=== PATIENT | female | born 1985 | race African-American/Black ===

== ENCOUNTER 2024-03-18 15:44 | Emergency (ER) | payer BC, MEDICAID ==
[~2024-03-18] VITALS: Ht 157.5 cm; Wt 60.1 kg
[2024-03-18 15:55] VITALS: BP 108/67; PULSE 89; RESP 16; O2SAT 100
[2024-03-18] MEDS ORDERED: ACETAMINOPHEN 500 MG TAB or CAP PO ONE (16:30)
--- NOTE | 2024-03-18 16:32 | ED.PDOC ---
BIOFUELS TECHNOLOGY MANAGER HPI Comments 38-year-old female , with past medical history pertinent for asthma, pr esents to ED for abdominal pain x1 day, associated with dysuria. Patient states that the abdominal pain is in her upper abdomen and radiates to her back. Patient states that the pain is intermittent and is sharp. She currently rates the pain as 9/10 in severity. She denies any nausea, vomiting, cough, fever, shortness of breath, vaginal bleeding. Patient states that she is unsure how many weeks she is . Her last menstrual period was November 14. She states that she has seen her PCP who confirmed her . Patient states that she has a follow up with OBGYN on March 26. Chief Complaint: Abdominal Pain Time Seen by MD: 15:50 Reviewed Notes: Nurses Notes, Medications, Allergies Allergies: Coded Allergies: NO KNOWN ALLERGIES (Unverified , 03/18/24) Past Medical History PAST MEDICAL HISTORY: Asthma Surgical History: Denies all surgeries FIELD CARE ADVOCATE History: No Pertinent FIELD CARE ADVOCATE History Family History Family History: Reviewed,noncontributory to illness Social History Smoker: Non-Smoker Alcohol: Denies ETOH Use Drugs: Denies Drug Use Constitutional: denies: chills, diaphoresis, fatigue, fever, malaise, sweats, weakness, others EENTM: denies: blurred vision, double vision, ear bleeding, ear discharge, ear drainage, ear pain, ear ringing, eye pain, eye redness, hearing loss, mouth pain, mouth swelling, nasal discharge, nose bleeding, nose congestion, nose pain, photophobia, tearing, throat pain, throat swelling, voice changes, others Respiratory: denies: cough, hemoptysis, orthopnea, SOB at rest, shortness of breath, SOB with excertion, stridor, wheezing, others Cardiovascular: denies: chest pain, dizzy spells, diaphoresis, Dyspnea on exertion, edema, irregular heart beat, left arm pain, lightheadedness, palpitations, PND, syncope, others Gastrointestinal: reports: abdominal pain; denies: abdomen distended, blood streaked bowels, constipated, diarrhea, dysphagia, difficulty swallowing, hematemesis, melena, nausea, poor appetite, poor fluid intake, rectal bleeding, rectal pain, vomiting, others Genitourinary: reports: dysuria, ; denies: abnormal vagina bleeding, burning, dyspareunia, flank pain, frequency, hematuria, incontinence, pain, vagina discharge, urgency, others Neurological: denies: dizziness, fainting, headache, left sided numbness, left sided weakness, numbness, paresthesia, pre-existing deficit, right sided numbness, right sided weakness, seizure, speech problems, tingling, tremors, weakness, others Musculoskeletal: denies: back pain, gout, joint pain, joint swelling, muscle pain, muscle stiffness, neck pain, others Integumetry: denies: bruises, change in color, change in hair/nails, dryness, laceration, lesions, lumps, rash, wounds, others Allergic/Immunocompromised: denies: Difficulty Healing, Frequent Infections, Hives, Itching, others Hematologic/Lymphatic: denies: anemia, blood clots, easy bleeding, easy bruising, swollen glands, others Endocrine: denies: excessive hunger, excessive sweating, excessive thirst, excessive urination, flushing, intolerance to cold, intolerance to heat, unexplained weight gain, unexplained weight loss, others Psychiatric: denies: anxiety, bipolar disorder, depression, hopeless, panic disorder, schizophrenia, sleepless, suicidal, others All Other Systems: Reviewed and Negative Physical Exam General Appearance: No Apparent Distress, Normal HEENT: Normal ENT Inspection, Pharynx Normal, TMs Normal Neck: Full Range of Motion, Non-Tender, Normal, Normal Inspection Respiratory: Chest Non-Tender, Lungs Clear, No Accessory Muscle Use, No Respiratory Distress, Normal Breath Sounds Cardiovascular: No Edema, No JVD, No Murmur, No Gallop, Normal Peripheral Pulses, Regular Rate/Rhythm Breast Exam: Deferred Gastrointestinal: No Organomegaly, No Pulsatile Mass, Normal Bowel Sounds, Soft, Tenderness (Tenderness to palpation to the epigastric region and the left upper quadrant.) Genitalia: Deferred Pelvic: Deferred Rectal: Deferred Extremities: No calf tenderness, Normal capillary refill, Normal inspection, Normal range of motion, Non-tender, No pedal edema Musculoskeletal : Apperance: Normal Neurologic: Alert, air vice marshal II-XII nml as Tested, No Motor Deficits, Normal Affect, Normal Mood, No Sensory Deficits Cerebellar Function: Normal Reflexes: Normal Skin: Dry, Normal Color, Warm Lymphatic: No Adenopathy Was a procedure done? Was a procedure done?: No Differential Diagnosis (FIELD CARE ADVOCATE) Vaginal Bleeding: - Complete, - Incomplete, - Inevitable, - Missed, - Threatened, Ectopic , UTI X-Ray, Labs, Meds, VS Vital Signs Date Time Temp Pulse Resp B/P (MAP) Pulse Ox O2 Delivery O2 Flow Rate FiO2 03/18/24 15:55 97.7 89 16 108/67 (81) 100 Lab Test 03/18/24 19:30 03/18/24 16:41 Range/Units Urine Color Light-yellow Yellow Urine Clarity Clear Clear Urine pH 6.0 5.0-9.0 Urine Specific [place] 1.020 1.001-1.035 Urine Protein Negative Negative Urine Ketones Negative Negative Urine Blood Negative Negative /uL Urine Nitrite Negative Negative Urine Bilirubin Negative Negative Urine Urobilinogen Normal Negative mg/dL Urine Leukocyte Esterase Negative Negative /uL Urine RBC 1 0 - 4 /hpf Urine WBC 1 0 - 5 /hpf Urine Squamous Epithelial Cells Few <5 /hpf Urine Bacteria None seen None Seen /hpf Urine Glucose Normal Normal mg/dL White Blood Count 9.3 4.4-10.8 10^3/uL Red Blood Count 3.93 L 4.0-5.20 10^6/uL Hemoglobin 10.8 L 12.2-16.2 g/dL Hematocrit 32.7 L 36.0-46.0 % Mean Corpuscular Volume 83.3 80.0-100.0 fL Mean Corpuscular Hemoglobin 27.4 L 28.0-32.0 pg Mean Corpuscular Hemoglobin Concent 32.9 32.0-36.0 g/dL Red Cell Distribution Width 14.2 11.8-14.3 % Platelet Count 164 140-450 10^3/uL Mean Platelet Volume 8.7 6.9-10.8 fL Neutrophils (%) (Auto) 76.9 37.0-80.0 % Lymphocytes (%) (Auto) 14.8 10.0-50.0 % Monocytes (%) (Auto) 6.9 0.0-12.0 % Eosinophils (%) (Auto) 1.3 0.0-7.0 % Basophils (%) (Auto) 0.1 0.0-2.0 % Neutrophils # (Auto) 7.1 1.6-8.6 10 ^3/uL Lymphocytes # (Auto) 1.4 0.4-5.4 10 ^3/uL Monocytes # (Auto) 0.6 0-1.3 10 ^3/uL Eosinophils # (Auto) 0.1 0-0.8 10 ^3/uL Basophils # (Auto) 0 0-0.2 10 ^3/uL Nucleated Red Blood Cells 0.0 % Sodium Level 138 136-145 mmol/L Potassium Level 3.8 3.5-5.1 mmol/L Chloride Level 106 98-107 mmol/L Carbon Dioxide Level 23 20-31 mmol/L Anion Gap 9 5-15 Blood Urea Nitrogen 11 9-23 mg/dL Creatinine 0.60 0.550-1.02 mg/dL Glomerular Filtration Rate Calc 118 >90 mL/min BUN/Creatinine Ratio 18.3 10.0-20.0 Serum Glucose 77 74-106 mg/dL Calcium Level 9.3 8.7-10.4 mg/dL Total Bilirubin 0.3 0.2-1.0 mg/dL Aspartate Amino Transferase (AST) 10 L 13-40 U/L Alanine Aminotransferase (ALT) < 9 7-40 U/L Alkaline Phosphatase 46 46-116 U/L Total Protein 6.1 5.7-8.2 g/dL Albumin 3.9 3.2-4.8 g/dL Lipase 27 12-53 U/L Beta HCG, Quantitative 91235.9 H 1.5-4.2 mIU/mL X-Ray, Labs, Meds, VS Comment OB US FINDINGS: Single intrauterine gestation. Breech presentation. heart rate 148 beats per minute. Average ultrasound age 21 weeks 4 days. Estimated due date 07/25/2024. Placenta is posterior. The cervix is not clearly visualized. No definite evidence to suggest abruption or previa at this time. measurements (cm): BPD 5.3, HC 19.7, AC 16.9, FL 3.4. Estimated weight: 421g Amniotic fluid is subjectively adequate. IMPRESSION: Single living intrauterine gestation as above. MDM: Patient with history as above presented with abdominal pain. History obtained from patient. Patient was nontoxic, stable, afebrile, ambulatory, no acute distress. Exam as above. Labs reviewed. CBC showed mild anemia with hemoglobin at 10.8 and hematocrit at 32.7. CMP did not show any significant abnormalities. Lipase within normal limits. LFTs within normal limits. Therefore acute infection. Beta hCG was 39335.9. Independently reviewed imaging. Ob ultrasound showed a single live intrauterine , with no acute abnormalities. Reviewed external records. All findings were discussed with the patient. Differential diagnosis considered. Overall presentation is consistent with normal . Low suspicion for present jaw abruption, spontaneous , UTI. Ordered Tylenol for the patient in the ED. Patient was reevaluated and vital signs were reviewed. Consideration was given for admission, but the patient was stable for outpatient management. Disposition: Discussed the need to follow up diagnostics, including incidental findings. Discharged the patient with instructions to obtain outpatient follow up in 1-2 days of today's symptoms and findings, with strict return precautions if patient develops new or worsening symptoms. This medical document was created using the [employer] dictation system. Although this document has been carefully reviewed, there may still be some phonetic and typographical errors, which are due to imperfections of the software program, and do not reflect any compromise in the patient's medical care. Time of 1ST Reevaluation: 20:27 Reevaluation 1ST: Improved Patient Education/Counseling: Diagnosis, Treatment, Prognosis, Need For Follow Up Family Education/Counseling: No Family Present Departure 1 Departure Time of Disposition: 20:28 Impression: Primary Impression: Abdominal pain in Qualified Codes: O26.892 - Other specified related conditions, s econd trimester; R10.9 - Unspecified abdominal pain Disposition: 01 HOME / SELF CARE / HOMELESS Condition: Fair Critical Care Note Critical Care Time?: No Stability Stability form required: No Heart Score Heart Score: Heart Score Response (Comments) Value History N/A 0 EKG N/A 0 Age N/A 0 Risk Factors N/A 0 Troponin N/A 0 Total 0 DEJA GALLEGOS PAC Mar 18, 2024 16:32
[2024-03-18 17:02] LABS: Basophils # (auto) 0 10 ^3/uL (0-0.2); Basophils % (auto) 0.1 % (0.0-2.0); Eosinophils # (auto) 0.1 10 ^3/uL (0-0.8); Eosinophils % (auto) 1.3 % (0.0-7.0); Hematocrit 32.7 % (36.0-46.0); Hemoglobin 10.8 g/dL (12.2-16.2); Lymphocytes # (auto) 1.4 10 ^3/uL (0.4-5.4); Lymphocytes % (auto) 14.8 % (10.0-50.0); Mean Corpuscular Hemoglobin 27.4 pg (28.0-32.0); Mean Corpuscular Hgb Conc. 32.9 g/dL (32.0-36.0); Mean Corpuscular Volume 83.3 fL (80.0-100.0); Monocytes # (auto) 0.6 10 ^3/uL (0-1.3); Monocytes % (auto) 6.9 % (0.0-12.0); Neutrophils # (auto) 7.1 10 ^3/uL (1.6-8.6); Neutrophils % (auto) 76.9 % (37.0-80.0); Platelet Count (auto) 164 10^3/uL (140-450); Red Blood Cells 3.93 10^6/uL (4.0-5.20); Red Cell Distribution Width 14.2 % (11.8-14.3); White Blood Cell 9.3 10^3/uL (4.4-10.8)
[2024-03-18 17:17] LABS: Albumin 3.9 g/dL (3.2-4.8); Anion Gap 9 (5-15); BUN/Creatinine Ratio 18.3 (10.0-20.0); Blood Urea Nitrogen 11 mg/dL (9-23); Calcium 9.3 mg/dL (8.7-10.4); Carbon Dioxide 23 mmol/L (20-31); Chloride 106 mmol/L (98-107); Glucose 77 mg/dL (74-106); Potassium 3.8 mmol/L (3.5-5.1); Sodium 138 mmol/L (136-145)
[2024-03-18 17:18] LABS: Total Protein 6.1 g/dL (5.7-8.2)
[2024-03-18 17:21] LABS: Alanine Aminotransferase < 9 U/L (7-40); Alkaline Phosphatase 46 U/L (46-116); Aspartate Aminotransferase 10 U/L (13-40); Bilirubin, Total 0.3 mg/dL (0.2-1.0)
--- NOTE | 2024-03-18 19:02 | DVH ---
US OB LIMITED CLINICAL HISTORY: Abd pain in , 17 weeks , COMPARISON: At the time of this review, no prior studies are available for comparison. TECHNIQUE: Real-time grayscale, color flow and M-mode imaging of the gravid uterus is performed. FINDINGS: Single intrauterine gestation. Breech presentation. heart rate 148 beats per minute. Average ul trasound age 21 weeks 4 days. Estimated due date 07/25/2024. Placenta is posterior. The cervix is not clearly visualized. No definite evidence to suggest abrupti on or previa at this time. measurements (cm): BPD 5.3, HC 19.7, AC 16.9, FL 3.4. Estimated weight: 421g Amniotic fluid is subjectively adequate. IMPRESSION: Single living intrauterine gestation as above.
[2024-03-18 19:43] LABS: Urine Bacteria None Seen /hpf (None Seen)
[2024-03-18 19:48] LABS: Urine Blood Negative /uL (Negative); Urine Clarity Clear (Clear); Urine Color Light-Yellow (Yellow); Urine Protein, UAD Negative (Negative); Urine Urobilinogen Normal (Negative); Urine WBC 1 /hpf (0 - 5)
== END 2024-03-19 00:13 | disposition left against medical advice (07) ==
LOC: ER 15:44
DX: O26.892 Other specified pregnancy related conditions, second trimester (principal); R10.12 Left upper quadrant pain; J45.909 Unspecified asthma, uncomplicated; Z3A.21 21 weeks gestation of pregnancy
CPT/HCPCS: 36415; 76805; 80053; 81001; 83690; 84702; 85025

== ENCOUNTER → 2024-04-02 | Outpatient (CLI) | payer BC, MEDICAID ==
[2024-04-02 12:29] LABS: Basophils # (auto) 0 10 ^3/uL (0-0.2); Basophils % (auto) 0.3 % (0.0-2.0); Eosinophils # (auto) 0.1 10 ^3/uL (0-0.8); Eosinophils % (auto) 1.7 % (0.0-7.0); Hematocrit 34.3 % (36.0-46.0); Hemoglobin 11.3 g/dL (12.2-16.2); Lymphocytes # (auto) 0.8 10 ^3/uL (0.4-5.4); Lymphocytes % (auto) 10.6 % (10.0-50.0); Mean Corpuscular Hemoglobin 27.3 pg (28.0-32.0); Mean Corpuscular Volume 82.7 fL (80.0-100.0); Monocytes # (auto) 0.6 10 ^3/uL (0-1.3); Monocytes % (auto) 7.6 % (0.0-12.0); Neutrophils # (auto) 6.3 10 ^3/uL (1.6-8.6); Neutrophils % (auto) 79.8 % (37.0-80.0); Nucleated Red Blood Cells % 0.1 %; Platelet Count (auto) 154 10^3/uL (140-450); Red Blood Cells 4.14 10^6/uL (4.0-5.20); Red Cell Distribution Width 14.3 % (11.8-14.3); White Blood Cell 7.9 10^3/uL (4.4-10.8)
[2024-04-02 12:56] LABS: Albumin 3.9 g/dL (3.2-4.8); Alkaline Phosphatase 58 U/L (46-116); Anion Gap 6 (5-15); BUN/Creatinine Ratio 12.3 (10.0-20.0); Bilirubin, Total 0.3 mg/dL (0.2-1.0); Blood Urea Nitrogen 9 mg/dL (9-23); Calcium 9.4 mg/dL (8.7-10.4); Carbon Dioxide 26 mmol/L (20-31); Chloride 105 mmol/L (98-107); Potassium 3.7 mmol/L (3.5-5.1); Sodium 137 mmol/L (136-145); Triglycerides 89 mg/dL (< 150)
[2024-04-02 12:57] LABS: Total Protein 6.6 g/dL (5.7-8.2)
[2024-04-02 12:59] LABS: Alanine Aminotransferase < 9 U/L (7-40); Aspartate Aminotransferase 10 U/L (13-40); Glucose 64 mg/dL (74-106)
[2024-04-02 13:00] LABS: Cholesterol 204 mg/dL (< 200); HDL Cholesterol 87 mg/dL (40-59); LDL Cholesterol 101 mg/dL (< 100); Thyroid Stimulating Hormone 0.2 uIU/mL (0.55-4.78)
[2024-04-02 13:04] LABS: Creatinine, Urine 125.02 mg/dL (30.0-125.0); Opiate Scree,Urine Neg (NEGATIVE)
[2024-04-02 13:18] LABS: Beta HCG, Quantitative 14764.5 mIU/mL (1.5-4.2)
[2024-04-02 13:23] LABS: Amphetamine Screen, Urine Neg (NEGATIVE); Barbiturate Scree,Urine Neg (NEGATIVE); Benzodiazephine Screen, Urine Neg (NEGATIVE); Cannabinoid Screen, Urine Neg (NEGATIVE); Cocaine Screen, Urine Neg (NEGATIVE); Phencyclidine Screen, Urine Neg (NEGATIVE)
[2024-04-03 08:06] LABS: RPR Non Reactive (Non Reactive); Rubella Antibodies, IgG 1.49 index (Immune >0.99); Varicella Zoster IgG Antibody Reactive (Non Reactive)
[2024-04-03 13:06] LABS: Chlamydia Trachomatis, NAA Negative (Negative); Neisseria gonorrhoeae, NAA Negative (Negative)
== END | disposition home or self-care (01) ==
LOC: LAB 11:46
PROVIDERS: ATTEND Obstetrics & Gynecology
DX: Z34.80 Encounter for supervision of other normal pregnancy, unspecified trimester (principal); Z36.0 Encounter for antenatal screening for chromosomal anomalies; N39.0 Urinary tract infection, site not specified
CPT/HCPCS: 36415; 80053; 80061; 80307; 82570; 83036; 84439; 84443; 84702; 85025; 86592; 86703; 86762; 86787; 86850; 86900; 86901; 87340; 87902

== ENCOUNTER → 2024-04-24 | Outpatient (CLI) | payer BC, MEDICAID ==
[2024-04-24 11:37] LABS: Basophils # (auto) 0 10 ^3/uL (0-0.2); Basophils % (auto) 0.1 % (0.0-2.0); Eosinophils # (auto) 0.1 10 ^3/uL (0-0.8); Eosinophils % (auto) 1.3 % (0.0-7.0); Hematocrit 31.1 % (36.0-46.0); Hemoglobin 10.3 g/dL (12.2-16.2); Lymphocytes # (auto) 1.1 10 ^3/uL (0.4-5.4); Lymphocytes % (auto) 13.5 % (10.0-50.0); Mean Corpuscular Hemoglobin 27.3 pg (28.0-32.0); Mean Corpuscular Hgb Conc. 33.2 g/dL (32.0-36.0); Mean Corpuscular Volume 82.4 fL (80.0-100.0); Monocytes # (auto) 0.5 10 ^3/uL (0-1.3); Monocytes % (auto) 6.1 % (0.0-12.0); Neutrophils # (auto) 6.5 10 ^3/uL (1.6-8.6); Platelet Count (auto) 158 10^3/uL (140-450); Red Blood Cells 3.77 10^6/uL (4.0-5.20); Red Cell Distribution Width 14.1 % (11.8-14.3); White Blood Cell 8.2 10^3/uL (4.4-10.8)
[2024-04-24 11:39] LABS: Albumin 3.7 g/dL (3.2-4.8); Alkaline Phosphatase 68 U/L (46-116); Anion Gap 7 (5-15); Aspartate Aminotransferase 13 U/L (13-40); BUN/Creatinine Ratio 13.4 (10.0-20.0); Calcium 9.3 mg/dL (8.7-10.4); Carbon Dioxide 25 mmol/L (20-31); Chloride 106 mmol/L (98-107); Glucose 83 mg/dL (74-106); Potassium 3.6 mmol/L (3.5-5.1); Sodium 138 mmol/L (136-145)
[2024-04-24 11:40] LABS: Total Protein 6.4 g/dL (5.7-8.2)
[2024-04-24 11:53] LABS: Alanine Aminotransferase < 9 U/L (7-40); Bilirubin, Total 0.3 mg/dL (0.2-1.0); Blood Urea Nitrogen 9 mg/dL (9-23)
[2024-04-25 07:06] LABS: RPR Non Reactive (Non Reactive)
[2024-04-25 11:06] LABS: Chlamydia Trachomatis, NAA Negative (Negative); Neisseria gonorrhoeae, NAA Negative (Negative)
== END | disposition home or self-care (01) ==
LOC: LAB 10:44
PROVIDERS: ATTEND Obstetrics & Gynecology
DX: Z34.80 Encounter for supervision of other normal pregnancy, unspecified trimester (principal)
CPT/HCPCS: 36415; 80053; 82951; 83036; 85025; 86592; 86850; 86900; 86901; 87086

== ENCOUNTER 2024-05-18 13:44 | Observation (INO) | payer BC, MEDICAID ==
--- NOTE | 2024-05-18 15:25 | DVH ---
EXAM: US OBSTERICAL LIMITED CLINICAL HISTORY: KAREN check COMPARISON: US OB ULTRASOUND COMP GTR 14 WKS on DOS: 03/18/24 TECHNIQUE: Grayscale, color-flow Doppler, and spectral Doppler ultrasound of the pelvis is performed by transabdominal technique. Findings/Impression: Single live intrauterine in vertex presentation with heart rate of 142 bpm. Cervical os appears closed . Placenta is posterior in location without evidence of previa or abrupti on. Limited evaluation of anatomy. Amniotic fluid is within normal limits with KAREN 13.2 cm and MVP 5.7 cm.
[2024-05-18] MEDS ORDERED: URSO300C2 PO (15:33)
[2024-05-18] MEDS ORDERED: PREN-96 PO (15:34)
--- NOTE | 2024-05-18 22:09 | DVHDS2 ---
Physician Discharge Progress N Final Diagnosis: 2vessel cord,choles Operations or Procedures: Operations or Procedures nst,sono Condition on Discharge: Good Disposition: Home Discharge Instructions: Diet: Regular Activity: No Restrictions, As Tolerated Medications: na Follow Up Care: Specialist: 3d Discharge Statement: "Patient was advised to return to the ER or call 911 if any headaches, dizziness, shortness of breath, chest pain, abdominal pain, bleeding, fevers, or worsening of medical condition. Patient was counseled about treatment plan, medications, possible side effects, patientverbalized understanding. All questions were answered to the best of my ability. This discharge took greater then 30 minutes in planning, reviewing documentation, counseling the patient, and discussing with other team members." FAVIO HOANG DO May 18, 2024 22:09
== END 2024-05-18 15:58 | disposition home or self-care (01) ==
LOC: LDRP 13:44 → UNDOADMOB 13:44 → LDRP 13:56
PROVIDERS: ADMIT Obstetrics & Gynecology; ATTEND Obstetrics & Gynecology
DX: O26.643 Intrahepatic cholestasis of pregnancy, third trimester (principal); K83.1 Obstruction of bile duct; Z3A.30 30 weeks gestation of pregnancy; Z79.899 Other long term (current) drug therapy; Z98.890 Other specified postprocedural states
CPT/HCPCS: 59025; 76815; 81002; 94760; G0378

== ENCOUNTER 2024-05-23 08:41 | Observation (INO) | payer BC, MEDICAID ==
[~2024-05-23] VITALS: Ht 157.5 cm; Wt 62.1 kg
[~2024-05-23 08:41] MED LIST: PREN-96 PO; URSO300C2 PO
--- NOTE | 2024-05-23 19:28 | DVHDS2 ---
Physician Discharge Progress N Final Diagnosis: testing for 2VC Secondary Diagnosis: ruled out for cholestasis Operations or Procedures: Operations or Procedures S: 38yo IUP@31wks here for NST for 2VC. Pt reports that Dr. Schaefer told her to take zyrtec for itching in her palms of hands and soles of feet. The itching is gone after taking Zyrtec. Next appt with Dr. Schaefer is on 05/28/24. +FM, denies UCs/VB/LOF/BAILEY/vision changes/RUQ pain. O: VSS NST reactive Total bile acids 0.80 on 05/18/24 A: 38yo IUP@31wks 2VC Ruled out for cholestasis P: D/C home FKC/PTL/Preeclampsia precautions reviewed. f/u Dr. Schaefer is on 05/28/[address] Charles consulted, agrees with POC. Condition on Discharge: Stable Disposition: Home Discharge Instructions: Diet: Regular Activity: Light activity Medications: see med list Follow Up Care: Specialist: f/u on 05/28/24 Discharge Statement: "Patient was advised to return to the ER or call 911 if any headaches, dizziness, shortness of breath, chest pain, abdominal pain, bleeding, fevers, or worsening of medical condition. Patient was counseled about treatment plan, medications, possible side effects, patientverbalized understanding. All questions were answered to the best of my ability. This discharge took greater then 30 minutes in planning, reviewing documentation, counseling the patient, and discussing with other team members." Visit Coding OBGYN Date of Service: May 23, 2024 Billing Provider: MARYLU ANN CNM MARKETING SUPPORT MANAGER Common Visit Codes: 58513-[id number] OBS CARE (HIGH) MARYLU ANN CNM May 23, 2024 19:28
== END 2024-05-23 15:47 | disposition home or self-care (01) ==
LOC: LDRP 14:33 → UNDOADMOB 14:33 → LDRP 14:40 → UNDODISOB 15:47
PROVIDERS: ADMIT Obstetrics & Gynecology; ATTEND Obstetrics & Gynecology
DX: O62.9 Abnormality of forces of labor, unspecified (principal); O69.81X0 Labor and delivery complicated by cord around neck, without compression, not applicable or unspecified; Z3A.31 31 weeks gestation of pregnancy; Z79.899 Other long term (current) drug therapy
CPT/HCPCS: 59025; 81002; 94760; G0378

== ENCOUNTER 2024-05-28 11:19 | Observation (INO) | payer BC, MEDICAID ==
--- NOTE | 2024-05-28 17:08 | DVHDS2 ---
Physician Discharge Progress N Final Diagnosis: IUP 31 wk Encounter for surveillance 2 vessel umbilical cord Operations or Procedures: Operations or Procedures NST Condition on Discharge: Stable Disposition: Home Discharge Instructions: Diet: Regular Activity: No Restrictions, As Tolerated Follow Up/Referral: as scheduled Medications: N/A Follow Up Care: Discharge Statement: "Patient was advised to return to the ER or call 911 if any headaches, dizziness, shortness of breath, chest pain, abdominal pain, bleeding, fevers, or worsening of medical condition. Patient was counseled about treatment plan, medications, possible side effects, patientverbalized understanding. All questions were answered to the best of my ability. This discharge took greater then 30 minutes in planning, reviewing documentation, counseling the patient, and discussing with other team members." Visit Coding OBGYN Date of Service: May 28, 2024 Billing Provider: BLANQUITA RENO DO ORACLE BRM DEVELOPER Common Visit Codes: 42523-EBF/OBS SAME DATE (MOD) ORACLE BRM DEVELOPER Procedure Codes: 26885-54- NON-STRESS TEST BLANQUITA RENO DO May 28, 2024 17:08
== END 2024-05-28 12:20 | disposition home or self-care (01) ==
LOC: LDRP 11:19 → UNDOADMOB 11:19 → LDRP 11:29 → UNDODISOB 12:20
PROVIDERS: ADMIT Obstetrics & Gynecology; ATTEND Obstetrics & Gynecology
DX: O69.89X2 Labor and delivery complicated by other cord complications, fetus 2 (principal); Z98.890 Other specified postprocedural states; Z79.899 Other long term (current) drug therapy; Z3A.31 31 weeks gestation of pregnancy
CPT/HCPCS: 59025; 81002; 94760; G0378

== ENCOUNTER 2024-06-04 11:15 | Observation (INO) | payer BC, MEDICAID ==
[~2024-06-04 11:15] MED LIST changes: -URSO300C2 PO
--- NOTE | 2024-06-04 12:36 | DVH ---
Procedure: US BIOPHYSICAL PROFILE 06/04/2024 12:18 PM Indication: 2 vessel cord/AMA Comparison: None Technique: Sonogram of gravid uterus utilizing grayscale and color techniques. FINDINGS: Single living intrauterine gestation. Presentation: Cephalic Placenta: Posterior heart rate: 135 bpm KAREN: 12.6 cm Maternal cervix: Closed, 3.9 cm in length Biophysical Profile: breathing score: 2 movement score: 2 tone: 2 Quantitative KAREN score: 2 Total score: 8/8 IMPRESSION: 1. Single living as above. 2. Biophysical profile score: 8/8.
--- NOTE | 2024-06-04 16:15 | DVHDS2 ---
Physician Discharge Progress N Final Diagnosis: 2 vessel cord Secondary Diagnosis: Encounter for surveillance Operations or Procedures: Operations or Procedures NST/BPP/KAREN Condition on Discharge: Stable Disposition: Home Discharge Instructions: Diet: Regular Activity: No Restrictions, As Tolerated Follow Up/Referral: as scheduled once per week Medications: N/A Follow Up Care: Discharge Statement: "Patient was advised to return to the ER or call 911 if any headaches, dizziness, shortness of breath, chest pain, abdominal pain, bleeding, fevers, or worsening of medical condition. Patient was counseled about treatment plan, medications, possible side effects, patientverbalized understanding. All questions were answered to the best of my ability. This discharge took greater then 30 minutes in planning, reviewing documentation, counseling the patient, and discussing with other team members." Visit Coding OBGYN Date of Service: Jun 04, 2024 Billing Provider: BLANQUITA RENO DO TRANSITIONAL STUDIES INSTRUCTOR Common Visit Codes: 21305-QTU/OBS SAME DATE (MOD) TRANSITIONAL STUDIES INSTRUCTOR Procedure Codes: 00853-66- NON-STRESS TEST BLANQUITA RENO DO Jun 04, 2024 16:15
== END 2024-06-04 12:45 | disposition home or self-care (01) ==
LOC: LDRP 11:15
PROVIDERS: ADMIT Obstetrics & Gynecology; ATTEND Obstetrics & Gynecology
DX: O69.81X2 Labor and delivery complicated by cord around neck, without compression, fetus 2 (principal); Z98.890 Other specified postprocedural states; Z79.899 Other long term (current) drug therapy; Z3A.32 32 weeks gestation of pregnancy
CPT/HCPCS: 59025; 76818; 81002; 94760; G0378

== ENCOUNTER 2024-06-12 10:04 | Observation (INO) | payer BC, MEDICAID ==
--- NOTE | 2024-06-12 11:00 | DVH ---
CLINICAL HISTORY: 2 vessel cord COMPARISON: US BIOPHYSICAL PROFILE on DOS: 06/04/24 TECHNIQUE: biophysical profile was performed. Transabdominal sonographic images of the fetus we re obtained. FINDINGS: The fetus is in cephalic position. heart rate measures 148 BPM. Amniotic fluid index measures 12.99 cm. The placenta is posterior in position. No evidence of placenta previa or abruption . BPP profile is an overall score of 8/8, with 2/2 points for breathing, with at least one episode of breathing over a 30 second duration during a 30 minute observation, 2/2 points for m ovements, with 3 or more discrete body or limb movements, 2/2 points for tone, with one or more episodes of extremity extension with return to flexion, or opening and closing of hand, and 2/ 2 points for amniotic fluid, with at least 1 pocket of amniotic fluid that measures 2 cm in 2 perpend icular planes. IMPRESSION: BPP score of 8/8.
--- NOTE | 2024-06-12 20:12 | DVHDS2 ---
Physician Discharge Progress N Final Diagnosis: testing for 2VC Operations or Procedures: Operations or Procedures 38yo IUP@33.6wks VSS NST reactive (verified by 2 RNs) FKC/PTL precautions reviewed Dr. Charles consulted, agrees with POC. Other Interventions Other Interventions [address] [address] Ph: [phone] DIAGNOSTIC IMAGING Diagnostic Imaging Report : [id number] Signed PATIENT: PORTER BAZZI ACCT: [id number] UNIT: [id number] : 1985 LOC: [facility] ROOM / BED: TRIAGE1 / A AGE / SEX: 38 / F ADM STATUS: ADM IN SERVICE 1010 ORDERING PHYSICIAN: MARYLU ANN CNM PROCEDURE(s): BPP - BIOPHYSICAL PROFILE REASON: 2 vessel cord ORDER NUMBER(s): [id number], ACCESSION NUMBER(s): [id number] CLINICAL HISTORY: 2 vessel cord COMPARISON: US BIOPHYSICAL PROFILE on DOS: 06/04/24 TECHNIQUE: biophysical profile was performed. Transabdominal sonographic images of the fetus were obtained. FINDINGS: The fetus is in cephalic position. heart rate measures 148 BPM. Amniotic fluid index measures 12.99 cm. The placenta is posterior in position. No evidence of placenta previa or abruption. BPP profile is an overall score of 8/8, with 2/2 points for breathing, with at least one episode of breathing over a 30 second duration during a 30 minute observation, 2/2 points for movements, with 3 or more discrete body or limb movements, 2/2 points for tone, with one or more episodes of extremity extension with return to flexion, or opening and closing of hand, and 2/2 points for amniotic fluid, with at least 1 pocket of amniotic fluid that measures 2 cm in 2 perpendicular planes. IMPRESSION: BPP score of 8/8. ATED BY: SHAMA BLACKWOOD DO DICTATED DATE/TIME: 06/12/24 105 SIGNED BY: SHAMA BLACKWOOD DO SIGNED DATE/TIME: 06/12/24 105 CC: Condition on Discharge: Stable Disposition: Home Discharge Instructions: Diet: Regular Activity: No Restrictions, As Tolerated Medications: see med list Follow Up Care: Specialist: f/u in 1 wk Discharge Statement: "Patient was advised to return to the ER or call 911 if any headaches, dizziness, shortness of breath, chest pain, abdominal pain, bleeding, fevers, or worsening of medical condition. Patient was counseled about treatment plan, medications, possible side effects, patientverbalized understanding. All questions were answered to the best of my ability. This discharge took greater then 30 minutes in planning, reviewing documentation, counseling the patient, and discussing with other team members." Visit Coding OBGYN Date of Service: Jun 12, 2024 Billing Provider: MARYLU ANN CNM HEATING AND COOLING TECHNICIAN Common Visit Codes: [id number] OBS CARE (HIGH) MARYLU ANN CNM Jun 12, 2024 20:12
== END 2024-06-12 11:37 | disposition home or self-care (01) ==
LOC: LDRP 10:04 → UNDOADMOB 10:04 → LDRP 10:11 → UNDODISOB 11:37
PROVIDERS: ADMIT Obstetrics & Gynecology; ATTEND Obstetrics & Gynecology
DX: O43.193 Other malformation of placenta, third trimester (principal); O62.9 Abnormality of forces of labor, unspecified; Z3A.33 33 weeks gestation of pregnancy; Z79.899 Other long term (current) drug therapy
CPT/HCPCS: 76818; 81002; 94760; G0378; 59025; 76819

== ENCOUNTER 2024-06-18 07:15 | Observation (INO) | payer BC, MEDICAID ==
--- NOTE | 2024-06-20 16:18 | DVH ---
BIOPHYSICAL PROFILE HISTORY: 2 Vessel cord TECHNIQUE: Multiple transabdominal real-time grayscale sonographic images through the gravid uterus of the fetus with duplex Doppler color flow and M-mode spectral analysis FINDINGS: BIOPHYSICAL PROFILE: breathing score: 2 movement score: 2 tone score: 2 Quantitative KAREN score: 2 (KAREN: 15.6 Cm.) Total score: 8/8 The cervix not measured Single live fetus in cephalic presentation. heart rate 126 beats per minute. Posterior Grade 2 placenta without previa or abruption 2-vessel cord Single live fetus at 35 weeks 0 days Biophysical profile score 8/8 corresponding to an ELLIOT of 07/25/2024. IMPRESSION: 1. Biophysical profile score: 8/8
--- NOTE | 2024-06-20 16:23 | DVHDS2 ---
Physician Discharge Progress N Final Diagnosis: testing for 2VC Operations or Procedures: Operations or Procedures 38yo IUP@35wks VSS NST reactive BPP wnl except 2VC FKC/PTL precautions reviewed. Dr. Charles consulted, agrees with POC. Condition on Discharge: Stable Disposition: Home Discharge Instructions: Diet: Regular Activity: No Restrictions, As Tolerated Medications: see med list Follow Up Care: Specialist: f/u in 1 wk Discharge Statement: "Patient was advised to return to the ER or call 911 if any headaches, dizziness, shortness of breath, chest pain, abdominal pain, bleeding, fevers, or worsening of medical condition. Patient was counseled about treatment plan, medications, possible side effects, patientverbalized understanding. All questions were answered to the best of my ability. This discharge took greater then 30 minutes in planning, reviewing docu mentation, counseling the patient, and discussing with other team members." Visit Coding OBGYN Date of Service: Jun 20, 2024 Billing Provider: MARYLU ANN CNM CRIMINAL INTELLIGENCE SPECIALIST Common Visit Codes: 17099-JUDODNS OBS CARE (HIGH) CRIMINAL INTELLIGENCE SPECIALIST Procedure Codes: 38568-18- NON-STRESS TEST MARYLU ANN CNM Jun 20, 2024 16:23
== END 2024-06-20 16:23 | disposition home or self-care (01) ==
LOC: UNDOADMOB 06-19 11:39 → LDRP 06-19 11:39 → UNDOADMOB 06-20 15:05
PROVIDERS: ADMIT Obstetrics & Gynecology; ATTEND Obstetrics & Gynecology
DX: O43.193 Other malformation of placenta, third trimester (principal); Z3A.35 35 weeks gestation of pregnancy; Z79.899 Other long term (current) drug therapy
CPT/HCPCS: 76818; 81002; 94760; G0378; 59025

== ENCOUNTER 2024-06-27 08:32 | Observation (INO) | payer BC, MEDICAID ==
--- NOTE | 2024-06-27 11:58 | DVHDS2 ---
Physician Discharge Progress N Final Diagnosis: AMA, IUGR, 2VC cord Operations or Procedures: Operations or Procedures NST/BPP/KAREN Condition on Discharge: Stable Disposition: Home Discharge Instructions: Diet: Regular Activity: Light activity Follow Up/Referral: as scheduled Medications: N/A Follow Up Care: Discharge Statement: "Patient was advised to return to the ER or call 911 if any headaches, dizziness, shortness of breath, chest pain, abdominal pain, bleeding, fevers, or worsening of medical condition. Patient was counseled about treatment plan, medications, possible side effects, patientverbalized understanding. All questions were answered to the best of my ability. This discharge took greater then 30 minutes in planning, reviewing documentation, counseling the patient, and discussing with other team members." Visit Coding OBGYN Date of Service: Jun 27, 2024 Billing Provider: BLANQUITA RENO DO SENIOR PRODUCT ENGINEER Common Visit Codes: 82864-PXN/OBS SAME DATE (MOD) SENIOR PRODUCT ENGINEER Procedure Codes: 61755-67- NON-STRESS TEST BLANQUITA RENO DO Jun 27, 2024 11:58
--- NOTE | 2024-06-27 14:11 | DVH ---
Procedure: US BIOPHYSICAL PROFILE 06/27/2024 11:25 AM Indication: 2 vessel cord Comparison: US BIOPHYSICAL PROFILE on DOS: 06/20/24, US BIOPHYSICAL PROFILE on DOS: 06/12/24, US BIOPHYS ICAL PROFILE on DOS: 06/04/24 Technique: Sonogram of gravid uterus utilizing grayscale and color techniques. FINDINGS: Single living intrauterine gestation. Presentation: Cephalic Placenta: Posterior heart rate: 145 bpm KAREN: 14.1 cm, DVP: 5.3 cm Maternal cervix: Not visualized Biophysical Profile: breathing score: 2 movement score: 2 tone: 2 Quantitative KAREN score: 2 Total score: 8/8 IMPRESSION: 1. Single living as above. 2. Biophysical profile score: 8/8.
== END 2024-06-27 12:34 | disposition home or self-care (01) ==
LOC: LDRP 11:07 → UNDOADMOB 11:07 → LDRP 11:18
PROVIDERS: ADMIT Obstetrics & Gynecology; ATTEND Obstetrics & Gynecology
DX: O36.5930 Maternal care for other known or suspected poor fetal growth, third trimester, not applicable or unspecified (principal); O69.81X0 Labor and delivery complicated by cord around neck, without compression, not applicable or unspecified; O09.523 Supervision of elderly multigravida, third trimester; Z3A.36 36 weeks gestation of pregnancy; Z79.899 Other long term (current) drug therapy
CPT/HCPCS: 76818; 81002; G0378; 59025; 76819

== ENCOUNTER 2024-06-29 10:17 | Observation (INO) | payer BC, MEDICAID ==
--- NOTE | 2024-06-29 11:57 | DVH ---
BIOPHYSICAL PROFILE HISTORY: 2 vessel cord iugr TECHNIQUE: Multiple transabdominal real-time grayscale sonographic images through the gravid uterus of the fetus with duplex Doppler color flow and M-mode spectral analysis FINDINGS: BIOPHYSICAL PROFILE: breathing score: 2 movement score: 2 tone score: 2 Quantitative KAREN score: 2 (KAREN: 15.7 Cm.) Total score: 8 The cervix not well visualized. Single live fetus in cephalic presentation. heart rate 171 beats per minute. Grade posterior placenta without previa or abruption 2 vessel cord is visualized. IMPRESSION: Biophysical profile score: 8/8
--- NOTE | 2024-06-29 15:33 | DVHDS2 ---
Physician Discharge Progress N Final Diagnosis: [id number], 2vessel cord Operations or Procedures: Operations or Procedures nst,sono Condition on Discharge: Good Disposition: Home Discharge Instructions: Diet: Regular Activity: No Restrictions, As Tolerated Medications: na Follow Up Care: Specialist: 3d Discharge Statement: "Patient was advised to return to the ER or call 911 if any headaches, dizziness, shortness of breath, chest pain, abdominal pain, bleeding, fevers, or worsening of medical condition. Patient was counseled about treatment plan, medications, possible side effects, patientverbalized understanding. All questions were answered to the best of my ability. This discharge took greater then 30 minutes in planning, reviewing documentation , counseling the patient, and discussing with other team members." Visit Coding OBGYN Date of Service: Jun 29, 2024 Billing Provider: FAVIO HOANG DO LINE LEADER Common Visit Codes: [id number] INP/OBS CARE (HIGH) LINE LEADER Procedure Codes: 77688-85- NON-STRESS TEST FAVIO HOANG DO Jun 29, 2024 15:33
== END 2024-06-29 12:12 | disposition home or self-care (01) ==
LOC: UNDOADMOB 10:17 → LDRP 10:17 → UNDODISOB 12:12
PROVIDERS: ADMIT Obstetrics & Gynecology; ATTEND Obstetrics & Gynecology
DX: O36.5930 Maternal care for other known or suspected poor fetal growth, third trimester, not applicable or unspecified (principal); O69.81X0 Labor and delivery complicated by cord around neck, without compression, not applicable or unspecified; Z3A.36 36 weeks gestation of pregnancy; Z79.899 Other long term (current) drug therapy
CPT/HCPCS: 59025; 76819; 81002; 94760; G0378; 76818

== ENCOUNTER 2024-07-03 11:37 | Observation (INO) | payer BC, MEDICAID ==
--- NOTE | 2024-07-03 14:02 | DVH ---
BIOPHYSICAL PROFILE HISTORY: 2 vessle cord Comparison Study: None TECHNIQUE: Multiple real-time grayscale sonographic images through the gravid uterus of the fetus wi th duplex Doppler color flow and M-mode spectral analysis FINDINGS: BIOPHYSICAL PROFILE: breathing score: 2 movement score: 2 tone score: 2 Quantitative KAREN score: 2 (KAREN: 16.13 Cm.) Total score: 8 The cervix is not visualized Single live fetus in cephalic presentation. heart rate 136 beats per minute. Posterior placenta without previa or abruption IMPRESSION: Biophysical profile score: 8
--- NOTE | 2024-07-04 12:36 | DVHDS2 ---
Physician Discharge Progress N Final Diagnosis: iugr,2 vessel cord Operations or Procedures: Operations or Procedures nst ,sono Condition on Discharge: Good Disposition: Home Discharge Instructions: Diet: Regular Activity: No Restrictions, As Tolerated Medications: na Follow Up Care: Specialist: 3d Discharge Statement: "Patient was advised to return to the ER or call 911 if any headaches, dizziness, shortness of breath, chest pain, abdominal pain, bleeding, fevers, or worsening of medical condition. Patient was counseled about treatment plan, medications, possible side effects, patientverbalized understanding. All questions were answered to the best of my ability. This discharge took greater then 30 minutes in planning, reviewing documentation, counseling the patient, and discussing with other team members." Visit Coding OBGYN Date of Service: Jul 04, 2024 Billing Provider: FAVIO HOANG DO RESEARCH SPEC Common Visit Codes: [id number] INP/OBS CARE (HIGH) RESEARCH SPEC Consultation Codes: [id number] CONSULT <20MIN RESEARCH SPEC Procedure Codes: 54275-73- NON-STRESS TEST FAVIO HOANG DO Jul 04, 2024 12:36
== END 2024-07-03 13:50 | disposition home or self-care (01) ==
LOC: LDRP 11:37
PROVIDERS: ADMIT Obstetrics & Gynecology; ATTEND Obstetrics & Gynecology
DX: O36.5930 Maternal care for other known or suspected poor fetal growth, third trimester, not applicable or unspecified (principal); O43.193 Other malformation of placenta, third trimester; Z3A.36 36 weeks gestation of pregnancy; Z79.899 Other long term (current) drug therapy
CPT/HCPCS: 76819; 81002; G0378

== ENCOUNTER 2024-07-07 07:53 | Observation (INO) | payer BC, MEDICAID ==
--- NOTE | 2024-07-07 09:22 | DVH ---
Procedure: US BIOPHYSICAL PROFILE 07/07/2024 08:27 AM Indication: 2 vessel cord/IUGR Comparison: US BIOPHYSICAL PROFILE on DOS: 07/03/24, US BIOPHYSICAL PROFILE on DOS: 06/29/24, US BIOPHY SICAL PROFILE on DOS: 06/27/24 Technique: Sonogram of gravid uterus utilizing grayscale and color techniques. FINDINGS: Single living intrauterine gestation. Presentation: Cephalic Placenta: Posterior, grade 2 heart rate: 140 bpm KAREN: 14.6 cm, DVP: 5 cm Maternal cervix: Closed, 2.7 cm in length in the transvaginal scan Biophysical Profile: breathing score: 2 movement score: 2 tone: 2 Quantitative KAREN score: 2 Total score: 8/8 IMPRESSION: 1. Single living as above. 2. Biophysical profile score: 8/8.
--- NOTE | 2024-07-07 10:08 | DVHDS2 ---
Physician Discharge Progress N Final Diagnosis: AMA, 2V cord, IUGR > 5th percentile without oligohydramnios Secondary Diagnosis: Previous C/Section Operations or Procedures: Operations or Procedures NST/BPP/KAREN all WNL status reassuring Commentary: Commentary UA doppler not available here Patient saw Dr. Jeremi SILVER 07/05/24, report pending Planned repeat C/Section next week for IUGR 5-10th percentile, as long as status remains reassuring with testing Condition on Discharge: Stable Disposition: Home Discharge Instructions: Diet: Regular Activity: Light activity Follow Up/Referral: 3 days NST/BPP Medications: N/A Follow Up Care: Discharge Statement: "Patient was advised to return to the ER or call 911 if any headaches, dizziness, shortness of breath, chest pain, abdominal pain, bleeding, fevers, or worsening of medical condition. Patient was counseled about treatment plan, medications, possible side effects, patientverbalized understanding. All questions were answered to the best of my ability. This discharge took greater then 30 minutes in planning, reviewing documentation, counseling the patient, and discussing with other team members." Visit Coding OBGYN Date of Service: Jul 07, 2024 Billing Provider: BLANQUITA RENO DO SALES AGENT [employer] Common Visit Codes: 53228-ABS/OBS SAME DATE (HIGH) SALES AGENT [employer] INSURANCE Procedure Codes: 44513-18- NON-STRESS TEST BLANQUITA RENO DO Jul 07, 2024 10:08
== END 2024-07-07 09:59 | disposition home or self-care (01) ==
LOC: LDRP 07:53
PROVIDERS: ADMIT Obstetrics & Gynecology; ATTEND Obstetrics & Gynecology
DX: O36.5930 Maternal care for other known or suspected poor fetal growth, third trimester, not applicable or unspecified (principal); O09.523 Supervision of elderly multigravida, third trimester; O43.193 Other malformation of placenta, third trimester; Z98.891 History of uterine scar from previous surgery; Z3A.37 37 weeks gestation of pregnancy
CPT/HCPCS: 76817; 76818; 81002; 94760; G0378; 76819

== ENCOUNTER 2024-07-08 00:11 | Inpatient (IN) | payer BC, MEDICAID ==
[~2024-07-08] VITALS: Ht 157.5 cm; Wt 63.5 kg
[2024-07-08] MEDS ORDERED: LIDOCAINE 2%HCL (LOCAL ANESTH.) INJ 20ML MDV IJ PRN (00:45)
[2024-07-08] MEDS ORDERED: PHISODERM TOP SOLN 240ML BTL TOP PRN (00:45)
[2024-07-08] MEDS ORDERED: WITCH HAZEL-GLYCERIN PAD TOP PRN (00:45)
[2024-07-08] MEDS ORDERED: DERMOPLAST 60ML BOTTLE TOP PRN (00:45)
--- NOTE | 2024-07-08 01:00 | DVHPN2 ---
Visit Coding OBGYN Date of Service: Jul 08, 2024 Billing Provider: BLANQUITA RENO DO FINANCIAL SERVICES COUNSELOR Common Visit Codes: 54541-[id number] INP/OBS CARE (HIGH) BLANQUITA RENO DO Jul 08, 2024 01:00
[2024-07-08] MEDS: ceFAZolin 2 GM/D5W50ml 50 ML IV ONE ×2 (01:10→02:08)
--- NOTE | 2024-07-08 01:13 | DVHHP ---
ADMIT DATE: 07/08/2024 CHIEF COMPLAINT: Uterine contractions and acute vaginal bleeding. HISTORY OF PRESENT ILLNESS: This is a 38-year-old -[place] female. She is 6, para 5 with 2 previous sections. The patient is at 37 weeks and 4 days' gestation. She has had good care since the second trimester with nv. Her is complicated by history of 2 previous sections, advanced maternal age and severe IUGR. She has been followed conservatively for IUGR by [facility]. She was here yesterday for a nonstress test and biophysical profile; they were normal. She presents now complaining of acute vaginal bleeding that is painful with uterine contractions. She is found to be in moderate distress. Her cervix is 2 cm dilated and 70% effaced, consistent with early labor. There is no bleeding on examination. She denies any rupture of membranes. PAST MEDICAL HISTORY: Anemia PAST SURGICAL HISTORY: x 2. MEDICATIONS: vitamins. ALLERGIES: No known drug allergies. SOCIAL HISTORY: Denies any tobacco, alcohol or illicit drug use. FAMILY HISTORY: Noncontributory. REVIEW OF SYSTEMS: Fourteen-point review of systems is negative as otherwise stated in the history of present illness. OBJECTIVE: VITAL SIGNS: Stable. GENERAL: She is in moderate distress. She appears to be in labor. HEENT: Normal. CHEST: Lung and heart sounds are within normal limits. ABDOMEN: Gravid, soft, nontender. EXTREMITIES: Without cyanosis or edema. PELVIC: External genitalia is without lesions. RN exam shows that the cervix is 2cm dilated, 70% and -3 station with no acute bleeding. FHR 120's w/ moderate variability no decelerations. Searchlight 1 to 2 contractions in 10 mins. ASSESSMENT: * Early term intrauterine 37.4 weeks, previous section, in early labor. * Intrauterine growth restriction. * Advanced maternal age. PLAN: The patient will be kept n.p.o. She will be admitted. IV fluids have been started. She has been consented for repeat section. The risks, benefits and alternatives to surgery have been discussed with the patient and informed consent has been obtained. Galen Schaefer DO CG/HEM TID: [id number] RECEIPT: [id number] [facility]
[2024-07-08] MEDS: TERBUTALINE SULFATE 1 MG/ML 1ML VIAL SC ONE (01:14)
[2024-07-08 01:20] LABS: Basophils # (auto) 0 10 ^3/uL (0-0.2); Basophils % (auto) 0.3 % (0.0-2.0); Eosinophils # (auto) 0.1 10 ^3/uL (0-0.8); Eosinophils % (auto) 0.5 % (0.0-7.0); Hematocrit 36.7 % (36.0-46.0); Hemoglobin 12.3 g/dL (12.2-16.2); Lymphocytes # (auto) 2.2 10 ^3/uL (0.4-5.4); Lymphocytes % (auto) 16.3 % (10.0-50.0); Mean Corpuscular Hemoglobin 27.5 pg (28.0-32.0); Mean Corpuscular Hgb Conc. 33.5 g/dL (32.0-36.0); Monocytes # (auto) 0.7 10 ^3/uL (0-1.3); Monocytes % (auto) 5.5 % (0.0-12.0); Neutrophils # (auto) 10.5 10 ^3/uL (1.6-8.6); Neutrophils % (auto) 77.4 % (37.0-80.0); Platelet Count (auto) 126 10^3/uL (140-450); Red Blood Cells 4.47 10^6/uL (4.0-5.20); Red Cell Distribution Width 14.9 % (11.8-14.3); White Blood Cell 13.6 10^3/uL (4.4-10.8)
[2024-07-08 01:39] LABS: Alanine Aminotransferase < 9 U/L (7-40); Albumin 4.1 g/dL (3.2-4.8); Alkaline Phosphatase 196 U/L (46-116); Anion Gap 14 (5-15); Aspartate Aminotransferase 14 U/L (13-40); BUN/Creatinine Ratio 9.3 (10.0-20.0); Blood Urea Nitrogen 7 mg/dL (9-23); Calcium 9.7 mg/dL (8.7-10.4); Carbon Dioxide 18 mmol/L (20-31); Chloride 107 mmol/L (98-107); Glucose 98 mg/dL (74-106); Potassium 3.3 mmol/L (3.5-5.1); Sodium 139 mmol/L (136-145); Total Protein 6.9 g/dL (5.7-8.2)
[2024-07-08 01:40] LABS: Bilirubin, Total 0.4 mg/dL (0.2-1.0); INR 0.92 (0.9-1.15); Partial Thromboplastin Time 30.2 SEC (24.5-34.5); Prothrombin Time 9.8 sec (9.3-11.8)
[2024-07-08] MEDS: LACTATED RINGER'S 1,000 ML IV SCH (02:08)
[2024-07-08] MEDS ORDERED: fentaNYL CITRATE 100 MCG/2 ML VL ONE (02:23)
[2024-07-08] MEDS ORDERED: MORPHINE SULF PF 5 MG/10 ML VIAL ONE (02:24)
[2024-07-08] MEDS ORDERED: OXYTOCIN 10UNIT/ML 1ML VIAL ONE (02:25)
[2024-07-08] MEDS ORDERED: ONDANSETRON HCL 4 MG/2 ML VIAL ONE (02:26)
[2024-07-08] MEDS ORDERED: DexAMETHasone SOD PHOS 10MG/1ML VIAL INJ ONE (02:26)
[2024-07-08 03:30] VITALS: BP 116/87; PULSE 83; RESP 16; TEMP 98.2; O2SAT 99
--- NOTE | 2024-07-08 03:44 | DVHOP2 ---
Operative Report - 2 Report Details Date: 07/08/24 Preop Diagnosis: Early Term IUP 37.4 wk, in early labor Prior C/S x 2 , desires repeat IUGR Postop Diagnosis: Same Surgeon: Galen Reno DO Accounting Administrator: vacuum technician Anesthesiologist: BELKIS Gu Anesthesia: Regional Consent: The patient was informed of the risks and benefits of the procedure. These include but are not limited to complications of anesthesia, postoperative infection, incomplete relief of symptoms, recurrence of symptoms, damage to blood vessels, nerves and tendons, deep venous thrombosis, pulmonary embolism and possible need for repeat surgery in the future. Complications: None Estimated Blood Loss: 500 mL Findings: Findings: Viable male infant in cephalic presentation. Apgars 8 and 9. Clear amniotic fluid. Intact placenta, TWO vessel cord. Normal uterus, fallopian tubes and ovaries bilaterally. Name of Procedure Performed Repeat Low Transverse Section Delivery Procedure Details Procedure Details: DATE OF SURGERY: 07/08/2024 PREOPERATIVE DIAGNOSES: Early Term IUP 37.4 weeks, Previous C/Section x 2, in early Labor, IUGR FINAL DIAGNOSES: SAME ABOVE PROCEDURE PERFORMED: Repeat low transverse section via Pfannenstiel skin incision. SURGEON: Galen Reno DO TYPE OF ANESTHESIA: Spinal. ANESTHESIA: Satish Gu CRNA. TECHNICAL PROCEDURE: After informed consent was obtained, the patient was taken to the operating room where her spinal anesthesia was found to be adequate. She was placed in the supine position with a slight leftward tilt. She was sterilely prepped and draped in usual sterile fashion. A Pfannenstiel skin incision was made with the scalpel through the prior scar. The incision was developed sharply to the underlying layer of fascia. The fascia was incised in the midline and extended laterally with sharp dissection. The rectus muscles were dissected off the rectus fascia and entry into the peritoneal cavity was performed bluntly. The peritoneal incision was extended superiorly and inferiorly and manually stretched. The Parish O retractor was placed into the incision. Using a second scalpel, the lower uterine segment was incised in a low transverse fashion and the incision extended laterally using digital technique. Clear amniotic fluid was obtained. The baby was in cephalic presentation. The baby was delivered atraumatically. The nose and mouth were suctioned. The cord was clamped and cut, and the baby handed off to waiting pediatric team. Cord blood was obtained. The placenta was delivered. It was found to be intact with a 2 vessel cord. After delivery of the placenta, the uterus was exteriorized and cleared of all clots and debris using moist laparotomy sponges. The uterine incision was repaired with #1 PDS in continuous running locking fashion. The uterus was closed in 2 layers, obtaining excellent tissue approximation and hemostasis. The uterus was returned to the abdomen. The cul-de-sac and paracolic gutters were cleared of all clots and debris..All instrumentation was removed from the patient's abdomen before proceeding to close the rectus fascia using #1 PDS. The incision was closed in continuous running fashion with good tissue approximation. The subcutaneous tissue was irrigated. Bleeding points controlled with cautery. The subcutaneous tissue was approximated with 2-0 plain gut and the skin closed in subcuticular fashion using a 3-0 Monocryl Stratafix suture. A thin layer of Dermabond was placed over the incision. Once the Dermabond was dry, a SYLKE dressing was placed over the incision. The patient tolerated the procedure well. Sponge, lap, needle counts were correct x 4. INTRAOPERATIVE COMPLICATIONS: None. ESTIMATED BLOOD LOSS: 500 mL POSTOPERATIVE CONDITION: Stable. SPECIMENS: Cord blood, and placenta MEDICATIONS: The patient had received 2 grams of Ancef prior to skin incision. Galen Reno DO Condition Stable Disposition Still a Patient Visit Coding OBGYN Date of Service: Jul 08, 2024 Billing Provider: GALEN RENO DO RESEARCH QUALITY ASSURANCE ANALYST Common Visit Codes: PROCEDURE ONLY RESEARCH QUALITY ASSURANCE ANALYST Procedure Codes: 50290-RSHSX OB CARE, GALEN EASLEY DO Jul 08, 2024 03:43
[2024-07-08] MEDS ORDERED: NALOXONE HCL 0.4 MG/ML VIAL IV PRN (04:00)
[2024-07-08] MEDS ORDERED: HYDROmorphone HCL 2 MG/ML VL/or syr IV PRN (04:00)
[2024-07-08] MEDS ORDERED: ONDANSETRON HCL 4 MG/2 ML VIAL IV PRN ×2 (04:00→05:45)
[2024-07-08 04:11] LABS: Urine Bacteria None Seen /hpf (None Seen)
[2024-07-08 04:32] LABS: Cannabinoid Screen, Urine Neg (NEGATIVE)
[2024-07-08 04:38] LABS: Amphetamine Screen, Urine Neg (NEGATIVE); Barbiturate Scree,Urine Neg (NEGATIVE); Benzodiazephine Screen, Urine Neg (NEGATIVE); Cocaine Screen, Urine Neg (NEGATIVE); Opiate Scree,Urine Neg (NEGATIVE); Phencyclidine Screen, Urine Neg (NEGATIVE)
[2024-07-08 04:50] LABS: Urine Blood Negative /uL (Negative); Urine Clarity Clear (Clear); Urine Color Yellow (Yellow); Urine Mucus FEW (None Seen); Urine Protein, UAD TRACE (Negative); Urine Specific Gravity 1.025 (1.001-1.035); Urine Squamous Epithelial Cell FEW /hpf (<5); Urine Urobilinogen Normal (Negative); Urine WBC 3 /HPF (0-5); Urine pH 6.5 (5.0-9.0)
[2024-07-08] MEDS ORDERED: LACTATED RINGER'S 1,000 ML IV SCH (05:45)
[2024-07-08] MEDS ORDERED: ePHEDrine SULFATE 50 MG/ML AMP IV PRN (05:45)
[2024-07-08] MEDS: diphenhdrAMINE HCL 50 MG/1 ML VL IV PRN (05:52)
[2024-07-08 07:00] VITALS: BP 100/63; PULSE 68; RESP 16; TEMP 97.4; O2SAT 97
[2024-07-08] MEDS: ceFAZolin 1GM/50ML 50 ML IV SCH (10:50)
[2024-07-08] MEDS: POTASSIUM CHL 20 Meq TABLET PO SCH (10:51)
[2024-07-08 11:00] VITALS: BP 99/64; PULSE 60; RESP 20; TEMP 97.7; O2SAT 99
[2024-07-08] MEDS ORDERED: ACETAMINOPHEN IV 1000 MG/100ML (10MG/ML) IV PRN (14:15)
[2024-07-08 15:00] VITALS: BP 102/62; PULSE 70; RESP 20; TEMP 97.9; O2SAT 94
[2024-07-08 19:00] VITALS: BP 101/57; PULSE 72; RESP 18; TEMP 97.8; O2SAT 96
[2024-07-08] MEDS: KETOROLAC TROMETH 30 MG/ML 1ML VIAL IV PRN (19:33)
[2024-07-08 22:50] VITALS: BP 102/62; PULSE 68; RESP 16; TEMP 98; O2SAT 97
--- NOTE | 2024-07-09 01:41 | DVHPN2 ---
Progress Note Date Seen: Jul 09, 2024 Subjective POD#1 s/p Repeat C/S in labor at 37+ wk, IUGR, AMA S: Feeling well. Pain controlled. Lochia mild. + flatus. well vital signs Vital Sign Date Time Temp Pulse Resp B/P (MAP) Pulse Ox O2 Delivery O2 Flow Rate FiO2 07/08/24 22:50 98.0 68 16 102/62 (75) 97 98.0 07/08/24 19:00 Room Air 07/08/24 07:00 0.0 Total Intake and Output 07/08/24 07/08/24 07/09/24 15:00 23:00 07:00 Output Total 1000 ml 800 ml Balance -1000 ml -800 ml medications Current Medications Medications Dose Ordered Sig/Meera Route Start Time Stop Time Status Last Admin Dose Admin Jordyn Myles 1 pad PRN PRN TOP 07/08/24 00:45 Sodium Lauryl Sulfate 240 ml PRN PRN TOP 07/08/24 00:45 Benzocaine 1 applic PRN PRN TOP 07/08/24 00:45 Lidocaine HCl 20 ml ONCE PRN IJ 07/08/24 00:45 Cancel Diphenhydramine HCl 25 mg Q4HP PRN IV 07/08/24 04:00 07/08/24 05:52 25 MG Ondansetron HCl 4 mg Q4HP PRN IV 07/08/24 04:00 Cancel Ketorolac Tromethamine 30 mg Q6HP PRN IV 07/08/24 04:00 07/13/24 03:59 07/08/24 19:33 30 MG Lactated Ringer's 1,000 ml @ 125 mls/hr Q8H IV 07/08/24 05:45 Cancel Ondansetron HCl 4 mg Q4HP PRN IV 07/08/24 05:45 Cefazolin Sodium 50 ml @ 100 mls/hr Q8H IV 07/08/24 11:00 07/09/24 03:29 07/08/24 19:04 100 MLS/HR Ephedrine Sulfate 10 mg [id number] PRN IV 07/08/24 05:45 07/09/24 05:44 Acetaminophen 1,000 mg Q8HPRN PRN IV 07/08/24 14:15 07/09/24 14:01 laboratory and microbiology Laboratory Tests 07/08/24 00:52 Test 07/08/24 00:52 Range/Units Serum Glucose 98 74-106 mg/dL Objective O: AFVSS Chest: heart and lung sounds normal. Abd soft, non-tender, fundus firm, BS, no rebound or guarding, Incision - dressing and incision clean, dry, intact Ext Neg Homans, Non-tender, edema Lochia - minimal Labs Reviewed Assessment/Plan POD#1 s/p Repeat C/Section doing well Plan: Advance orders Pain control Ambulate regular diet possible D/C tomorrow Plan discussed with: Patient Visit Coding OBGYN Date of Service: Jul 09, 2024 Billing Provider: BLANQUITA RENO DO CAKE MAKER Common Visit Codes: [id number] INP/OBS CARE(MOD) BLANQUITA RENO DO Jul 09, 2024 01:41
[2024-07-09] MEDS ORDERED: HYDR-4902 PO (01:42)
[2024-07-09] MEDS ORDERED: IBUP-1455 PO (01:42)
[2024-07-09] MEDS ORDERED: HYDROcodone-ACET 5/325MG TAB PO PRN (02:00)
[2024-07-09 03:30] VITALS: BP 116/87; PULSE 83; RESP 16; TEMP 98.2; O2SAT 99
[2024-07-09] MEDS: HYDROcodone-ACET 5/325MG TAB PO PRN (05:07)
[2024-07-09] MEDS: SIMETHICONE 80 MG CHEWABLE TABLET PO SCH (07:01)
[2024-07-09 07:20] VITALS: BP 124/56; PULSE 79; RESP 18; TEMP 98.2; O2SAT 99
[2024-07-09 11:00] VITALS: BP 94/52; PULSE 75; RESP 18; TEMP 98.4; O2SAT 97
[2024-07-09 15:00] VITALS: BP 101/63; PULSE 87; RESP 18; TEMP 97.7; O2SAT 97
[2024-07-09 19:30] VITALS: BP 101/58; PULSE 73; RESP 14; TEMP 97.7; O2SAT 97
[2024-07-09] MEDS: IBUPROFEN 800 MG TAB PO PRN (20:33)
[2024-07-09 23:30] VITALS: BP 94/57; PULSE 77; RESP 16; TEMP 97.6; O2SAT 97
[2024-07-10] MEDS: DOCUSATE SOD 100 MG CAP PO SCH (01:09)
[2024-07-10 03:00] VITALS: BP 98/53; PULSE 72; RESP 16; TEMP 97.7; O2SAT 97
--- NOTE | 2024-07-10 06:22 | DVHPN2 ---
Chief Complaints Patient reports: No new complaints, Other ( day 2 section scheduled doing well stable improved) Nursing reports: No new complaints, No abdominal pain, No chest pain, No dizziness, No cough Objective Vitals Vital Signs Date Time Temp Pulse Resp B/P (MAP) Pulse Ox O2 Delivery O2 Flow Rate FiO2 07/10/24 03:00 97.7 72 16 98/53 (68) 97 97.7 07/09/24 19:30 Room Air 07/08/24 07:00 0.0 Medications Current Medications Medications (Trade) Dose Ordered Sig/Meera Route PRN Reason Start Time Stop Time Status Last Admin Docusate Sodium (Colace Capsule) 100 mg Q12HR PO 07/10/24 01:00 07/10/24 01:09 General: Normal Neck: Normal Lungs: Normal Cardiovascular: Normal Abdominal: Normal Musculoskeletal: Normal Extremities: Normal Skin: Normal Neurological: Normal Studies Laboratory Tests 07/08/24 00:52 Test 07/08/24 00:52 Range/Units Serum Glucose 98 74-106 mg/dL Ass/Plan Assessment Postop day 2 stable improved Plan See discharge summary see discharge orders. ILIANA MURILLO DO Jul 10, 2024 06:22
--- NOTE | 2024-07-10 06:25 | DVHDS2 ---
Discharge Summary Date of Admission Jul 08, 2024 at 00:29 Date of Discharge: Jul 10, 2024 Admitting Diagnosis Post section day 2 stable Wounds: Clean dry and intact positive bowel sounds Labs/Diagnostic Data: Uterus for Laboratory Results Test 07/08/24 01:55 07/08/24 00:52 Urine Color Yellow (Yellow) Urine Clarity Clear (Clear) Urine pH 6.5 (5.0-9.0) Urine Specific Orient 1.025 (1.001-1.035) Urine Protein Trace (Negative) Urine Ketones 3+ (Negative) Urine Blood Negative /uL (Negative) Urine Nitrite Negative (Negative) Urine Bilirubin Negative (Negative) Urine Urobilinogen Normal mg/dL (Negative) Urine Leukocyte Esterase Negative /uL (Negative) Urine RBC 1 /hpf (0 - 4) Urine Microscopic WBC 3 /HPF (0-5) Urine Squamous Epithelial Cells Few /hpf (<5) Urine Bacteria None seen /hpf (None Seen) Urine Mucus Few (None Seen) Urine Glucose Normal mg/dL (Normal) Urine Opiates Screen Neg (NEGATIVE) Urine Fentanyl Screen Neg (NEGATIVE) Urine Barbiturates Screen Neg (NEGATIVE) Urine Phencyclidine Screen Neg (NEGATIVE) Urine Amphetamines Screen Neg (NEGATIVE) Urine Benzodiazepines Screen Neg (NEGATIVE) Urine Cocaine Screen Neg (NEGATIVE) Urine Cannabinoids Screen Neg (NEGATIVE) White Blood Count 13.6 10^3/uL (4.4-10.8) Red Blood Count 4.47 10^6/uL (4.0-5.20) Hemoglobin 12.3 g/dL (12.2-16.2) Hematocrit 36.7 % (36.0-46.0) Mean Corpuscular Volume 82.0 fL (80.0-100.0) Mean Corpuscular Hemoglobin 27.5 pg (28.0-32.0) Mean Corpuscular Hemoglobin Concent 33.5 g/dL (32.0-36.0) Red Cell Distribution Width 14.9 % (11.8-14.3) Platelet Count 126 10^3/uL (140-450) Mean Platelet Volume 9.0 fL (6.9-10.8) Neutrophils (%) (Auto) 77.4 % (37.0-80.0) Lymphocytes (%) (Auto) 16.3 % (10.0-50.0) Monocytes (%) (Auto) 5.5 % (0.0-12.0) Eosinophils (%) (Auto) 0.5 % (0.0-7.0) Basophils (%) (Auto) 0.3 % (0.0-2.0) Neutrophils # (Auto) 10.5 10 ^3/uL (1.6-8.6) Lymphocytes # (Auto) 2.2 10 ^3/uL (0.4-5.4) Monocytes # (Auto) 0.7 10 ^3/uL (0-1.3) Eosinophils # (Auto) 0.1 10 ^3/uL (0-0.8) Basophils # (Auto) 0 10 ^3/uL (0-0.2) Nucleated Red Blood Cells 0.0 % Prothrombin Time 9.8 sec (9.3-11.8) Prothrombin Time INR 0.92 (0.9-1.15) Activated Partial Thromboplast Time 30.2 SEC (24.5-34.5) Sodium Level 139 mmol/L (136-145) Potassium Level 3.3 mmol/L (3.5-5.1) Chloride Level 107 mmol/L (98-107) Carbon Dioxide Level 18 mmol/L (20-31) Anion Gap 14 (5-15) Blood Urea Nitrogen 7 mg/dL (9-23) Creatinine 0.75 mg/dL (0.550-1.02) Glomerular Filtration Rate Calc 105 mL/min (>90) BUN/Creatinine Ratio 9.3 (10.0-20.0) Serum Glucose 98 mg/dL (74-106) Calcium Level 9.7 mg/dL (8.7-10.4) Total Bilirubin 0.4 mg/dL (0.2-1.0) Aspartate Amino Transferase (AST) 14 U/L (13-40) Alanine Aminotransferase (ALT) < 9 U/L (7-40) Alkaline Phosphatase 196 U/L (46-116) Total Protein 6.9 g/dL (5.7-8.2) Albumin 4.1 g/dL (3.2-4.8) Treponema pallidum Antibody Non-reactive (Negative) Hepatitis C Antibody Negative (Negative) Other Laboratory Tests 07/08/24 00:52 Brief Hx & Hospital Course: Patient is stable postop day 2 Consults/Reason for consult None Operations or Procedures Repeat low transverse Condition at Discharge: Good Final Diagnosis/Problems List Same Discharge Disposition: Home Discharge Instruct/Medications Diet: Regular Activity: Light activity (Pelvic rest 6 weeks hemorrhage precautions fever precautions) Follow Up/Referral: Primary surgeon Chaka HIGGINBOTHAM 1-2 weeks or p.r.n. Discharge Statement: "Patient was advised to return to the ER or call 911 if any headaches, dizziness, shortness of breath, chest pain, abdominal pain, bleeding, fevers, or worsening of medical condition. Patient was counseled about treatment plan, medications, possible side effects, patientverbalized understanding. All questions were answered to the best of my ability. This discharge took greater then 30 minutes in planning, reviewing documentation, counseling the patient, and discussing with other team members." ASSESSMENT ASSESSMENT Assessment Same Visit Coding OBGYN Date of Service: Jul 10, 2024 Billing Provider: ILIANA MURILLO DO EMISSIONS TECHNICIAN Common Visit Codes: [id number] INP/OBS CARE (HIGH) EMISSIONS TECHNICIAN Procedure Codes: 15104-FXSLQ OB CARE, DEL ILIANA MURILLO DO Jul 10, 2024 06:25
[2024-07-10 07:00] VITALS: BP 93/59; PULSE 67; RESP 16; TEMP 97.7; O2SAT 99
[2024-07-10] MEDS: TETANUS-DIPTH-ACEL PERTUSSIS 0.5ML SYR Tdap IM ONE (07:48)
[2024-07-10] MEDS ORDERED: DOCU-265 PO (08:00)
== END 2024-07-10 10:45 | disposition home or self-care (01) | DRG 788 ==
LOC: LDRP 00:11 → OBSVTOIN 00:29 → LDRP 00:34
PROVIDERS: ADMIT Obstetrics & Gynecology; ATTEND Obstetrics & Gynecology
PROC: 10D00Z1 Extraction of Products of Conception, Low, Open Approach (ICD-10-PCS; principal; 2024-07-08 02:28)
DX: O34.211 Maternal care for low transverse scar from previous cesarean delivery (principal); O36.5930 Maternal care for other known or suspected poor fetal growth, third trimester, not applicable or unspecified; O99.02 Anemia complicating childbirth; Z3A.37 37 weeks gestation of pregnancy; Z37.0 Single live birth; D64.9 Anemia, unspecified; Z23 Encounter for immunization; O09.523 Supervision of elderly multigravida, third trimester
CPT/HCPCS: 36415; 80053; 80307; 81001; 81002; 85025; 85610; 85730; 86780; 86803; 86850; 86900; 86901; 90715; 94760; 96360; 96372; 96374; 96375; G0378; J1100; J1885; J2405